=== PATIENT | male | born 1975 | race Caucasian/White ===

== ENCOUNTER 2025-02-09 11:48 | Emergency (ER) | payer OTHER, SELFPAY ==
[2025-02-09] VITALS (35 sets, daily range): BP systolic 111–164; BP diastolic 65–125; PULSE 95–114; RESP 20; TEMP 36.1–36.9; O2SAT 85–105
--- NOTE | 2025-02-09 12:12 | W.ED.GENAD ---
Discharge Plan Discharge Details Chief Complaint: PsychEval Primary Care Provider: Eriberto Peter ED Provider: Aislinn Pineda Home Meds and New Rx's Prescriptions: No Action gabapentin 600 MG tablet 600 mg PO TID clonazepam 1 MG tablet 1 mg PO TID hydroxyzine pamoate 50 MG capsule 50 mg PO TID omeprazole 20 MG capsule,delayed release(DR/EC) 20 mg PO DAILY paroxetine HCl 40 MG tablet 20 mg PO TID buspirone 15 MG tablet 20 mg PO TID HPI <Karmen Henry - Last Filed: 02/09/25 17:56> General Date/Time Provider Initiated Documentation: 02/09/25 11:59. HPI Narrative: Carl is a 49 year old male who presents to the emergency department today for evaluation of SI and vomiting/ETOH use. Reports he has had vomiting at night for the past couple nights, last night says he began drinking alcohol, admits to drinking only 1 tall boy cans of beer. Today has vomited multiple times, thinks there may be blood in his vomit. ROS limited due to intoxication, however patient denies recent injuries, fever/chills, chest pain, shortness of breath, abdominal pain, change in bowel or bladder function. He does endorse SI, denies having a plan, states he would just like to go to sleep and not wake up. Past medical history is significant for alcohol use disorder, recently hospitalized at [facility] and then sober home, has been sober for 3 weeks prior to recent alcohol consult. Denies history of complicated alcohol withdrawal Physical exam reassuring. Patient appears intoxicated and often has difficulty answering questions, often with tangential answers. Moist mucous membranes. No blood noted in oropharynx. Easy work of breathing, lung sounds clear bilaterally. Normal heart sounds, mild tachycardia noted. Abdomen is soft, nondistended, nontender to palpation with normoactive bowel sounds. Normal gait. Moving all extremities equally. D/dx includes but is not limited to: Intoxication, upper GI bleed, gastritis, dehydration, electrolyte imbalance. Concern for SI, patient does require crisis eval after medical clearance. No red flags on abdominal exam concerning for acute abdominal process requiring emergent CT at this time I independently interpreted the following tests: EtOH 377.1. CBC reassuring, mild anemia noted (11.4/36.7, no previous available for comparison). Mild hypokalemia, potassium 3.3. Mild hypocalcemia, 7.6 (patient does have chronic hypocalcemia, calcium 8.2 on 11/01/2024 and 8.6 on 12/31/2024). TSH 0.3, normal T4. EtOH very elevated at 377.1. ASA and APAP negative. UA unremarkable; UDS negative. While in the emergency department, Carl received a liter of fluids, famotidine, Mylanta, and Zofran x 2. Patient did vomit while in the emergency department, no blood or coffee-ground emesis. Handoff report given to evening ELICIA ENRIQUE Duval. Patient to be evaluated by [facility] once medically cleared/clinicically sober. Related Data Home Medications ?Medication ?Instructions ?Recorded ?Confirmed buspirone 15 mg tablet 20 mg PO TID 01/14/15 01/14/15 clonazepam 1 mg tablet 1 mg PO TID 01/14/15 01/14/15 gabapentin 600 mg tablet 600 mg PO TID 01/14/15 01/14/15 hydroxyzine pamoate 50 mg capsule 50 mg PO TID 01/14/15 01/14/15 omeprazole 20 mg capsule,delayed 20 mg PO DAILY 01/14/15 01/14/15 release paroxetine HCl 40 mg tablet 20 mg PO TID 01/14/15 01/14/15 Allergies Allergy/AdvReac Type Severity Reaction Status Date / Time quetiapine fumarate (From AdvReac Intermediate Nausea Unverified 02/09/25 14:37 Seroquel) General Stated Complaint: PsychEval LINDA: 2 Exam <Karmen Henry - Last Filed: 02/09/25 17:56> Const General: cooperative, healthy appearing and no acute distress Nutritional Appearance: overweight Orientation: alert and oriented x3 HENMT Head: normal to inspection, no palpable skull fracture, normocephalic, atraumatic, no Richardson's sign and No periorbital ecchymosis Ears: hearing grossly normal bilaterally General nose exam: external nose normal Face and sinus: normal facial exam and face symmetric Mouth: oral mucosae normal, tongue normal, oropharynx normal and moist mucous membranes Resp Effort & Inspection: normal respiratory effort and able to speak in complete sentences Auscultation: clear to auscultation bilaterally Cardio Rate: tachycardic Rhythm: regular rhythm GI Inspection: normal to inspection and non-distended Palpation: soft, not firm, no guarding, not rigid and nontender Skin General skin exam: no rashes or lesions noted Neuro General: patient alert, patient oriented x3, gait normal, tone normal, moves all extremities and no focal motor deficits Motor: muscle tone normal throughout and strength 5/5 throughout Psych Affect: sad, dysphoric affect and blunted Thought Content: suicidality Course <Karmen M Alejandra Henry - Last Filed: 02/09/25 17:56> Vital Signs Vital signs: Vital Signs Temperature 36.9 C 02/09/25 11:50 Pulse 111 H 02/09/25 11:50 Respiratory Rate 20 02/09/25 11:50 Blood Pressure 146/104 H 02/09/25 11:50 Pulse Oximetry 94 02/09/25 11:50 Temperature 36.9 C 02/09/25 11:50 Temperature Source Oral 02/09/25 11:50 Pulse 111 H 02/09/25 11:50 Respiratory Rate 20 02/09/25 11:50 Blood Pressure 146/104 H 02/09/25 11:50 Pulse Oximetry 94 02/09/25 11:50 Oxygen Delivery Method Room Air 02/09/25 11:50 Oxygen Flow Rate 0 02/09/25 11:50 Pain Level 0 02/09/25 11:50 Medical Decision Making <ENRIQUE Duval - Last Filed: 02/09/25 22:12> Case is answered from Karmen Roberts pending clinical sobriety and NK chest assessment. Patient has been sober for 3 weeks and has only been drinking alcohol for the past 48 hours per patient. He lives in sober living house. States he was having a panic attack and very depressed and so he drink. He states he has never had delirium tremens fevers or significant alcohol withdrawal. He denies current suicidality. He is requesting to go home and is clinically sober however I am concerned as patient was so depressed that he started drinking in a sober living house and so I had [facility] human services performing assessment and they feel patient should be voluntary status for placement at this time patient is agreeable to voluntary status and placement he denies current suicidality. He is willing or vomiting and able to tolerate p.o.. His calcium was slightly low so he will need calcium supplement daily I have ordered a CIWA however his CIWA has not progressed over a level 2 and at this point his alcohol level should be below 100 which is reassuring. Patient pending placement at this time we will continue to monitor. Approximately 2100 patient had some nausea and was given IM Ativan with Compazine. He is feeling improvement at time of reassessment. ciwa 2 PFSH <Karmen Christie Henry - Last Filed: 02/09/25 17:56> Social History Smoking/Tobacco Use Status: Former Tobacco Use Smoking risk assessment performed?: Yes Alcohol Intake: current Alcohol Intake frequency: a few times a week Drug use: Never Substance use type: does not use Housing: other Do you feel safe at home: No Do you feel safe in your relationship?: No PAWSS <Karmen Christie Henry - Last Filed: 02/09/25 17:56> Have you Been Recently Intoxicated or Drunk Within the Last 30 days?: Yes Have you Ever Experienced Previous Episodes of Alcohol Withdrawal?: Yes Have you ever Experienced Withdrawal Seizures?: No Have you ever Experienced Delirium Tremens(DT)s?: No Have you ever undergone Alcohol Rehabilitation Treatment (i.e, inpt ot outpatient treatment programs)?: Yes Have you ever Experienced Blackouts?: Yes Have you ever Combined Alcohol with other Downers within the last 90 days?: No Have you ever Combined Alcohol with any other Substance of Abuse during the last 90 days?: No Positive Blood Alcohol level on Presentation? [PCS.BAL]: Yes Evidence of Increased Autonomic Activity (i.e. HR>120, tremor, sweating, agitation, nausea)?: No Result: 5 <ENRIQUE Duval - Last Filed: 02/09/25 22:12> Result: 5
[2025-02-09] MEDS: Normal Saline 1,000 ML 1000 ML IV (12:50)
[2025-02-09] MEDS: Ondansetron 4 MG/2 ML VIAL IVP ×2 (13:10→14:41)
[2025-02-09 13:17] LABS: Abs Immature Grans 0.02 10^3/uL (0.0-0.06); HCT 36.7 % (40.0-50.0); HGB 11.4 g/dL (13.5-17.5); Immature Grans % 0.3 %; MCH 22.2 pg (27.0-33.0); MCHC 31.1 % (32.0-36.0); MCV 72 fL (80-95); MPV 9.3 fL (8.0-11.0); Platelet Count 277 10^3/uL (130-400); RBC 5.13 10^6/uL (4.36-5.78); RDW 15.5 % (11.8-14.1); RDW-SD 39.3 fL; WBC 6.03 10^3/uL (4.4-10.8)
[2025-02-09 13:35] LABS: Microcytosis 2+
[2025-02-09 13:43] LABS: ALT 43 U/L (16-63); AST 33 U/L (15-37); Albumin 3.8 g/dL (3.4-5.0); Alkaline Phosphatase 96 U/L (46-116); Anion Gap 11.9 mmol/L (3-11); BUN 13 mg/dL (7-18); Bilirubin, Total 0.3 mg/dL (0.2-1.0); CO2 27.1 mmol/L (21.0-32.0); Calcium 7.6 mg/dL (8.5-10.1); Chloride 105 mmol/L (98-107); Estimated GFR 83.32 (mL/min/1.73m2); Glucose 120 mg/dL (74-106); Lipase 23 U/L (<78); Potassium 3.3 mmol/L (3.5-5.1); Sodium 144 mmol/L (136-145); TSH (W/Ref FT4) 0.30 uIU/mL (0.36-3.74); Total Protein 7.5 g/dL (6.4-8.2)
--- NOTE | 2025-02-09 14:00 | RT.EKG_ITS ---
APPROVED REPORT Exam: Resting ECG Reason for Exam: hypocalcemia Patient Location: E HR:104 bpm ECG Measurements Heart Rate 104 AXIS NC 148 P 43 QRSd 95 QRS 22 QT 349 T 28 QTc 460 Conclusion Sinus tachycardia...rate> 99 No Occlusion TX
[2025-02-09 14:03] LABS: Salicylate < 2.8 mg/dL (<2.8)
[2025-02-09 14:04] LABS: Acetaminophen < 2 ug/mL (10-30)
[2025-02-09 14:19] LABS: Glucose Negative (Negative)
[2025-02-09 14:35] LABS: Cannabinoids THC Negative (Negative); METHADONE URINE SCREEN Negative (Negative)
[2025-02-09] MEDS: Calcium 600mg/Vit D 200U TAB 1 TAB PO (14:42)
[2025-02-09] MEDS: Famotidine 20 MG/2 ML VIAL IVP (15:12)
[2025-02-09] MEDS: Mylanta Suspension 30 ML CUP PO (15:12)
[2025-02-09 15:48] LABS: Lab Add On Test DONE
[2025-02-09 15:59] LABS: Magnesium 2.0 mg/dL (1.8-2.4)
[2025-02-09] MEDS: hydrOXYzine HCL 25 MG TAB PO (20:46)
[2025-02-09] MEDS: LORazepam 20 MG/10 ML VIAL IM (21:41)
[2025-02-09] MEDS: Prochlorperazine 10 MG/2 ML VIAL 5 MG IM (21:41)
--- NOTE | 2025-02-09 21:42 | PDOC.MHCN ---
Date of service: 02/09/25 Time of Service: 18:42 PHQ-9 Over the last 2 weeks, how often have you been bothered by any of the following problems? 1. Little interest or pleasure in doing things: not at all 2. Feeling down, depressed, or hopeless: nearly every day 3. Trouble falling or staying asleep, or sleeping too much: nearly every day 4. Feeling tired or having little energy: not at all 5. Poor appetite or overeating: nearly every day 6. Feeling bad about yourself - or that you are a failure or have let yourself and your family down: nearly every day 7. Trouble concentrating on things, such as reading the newspaper or watching television: not at all 8. Moving or speaking so slowly that other people could have noticed? - Or the opposite - being so fidgety or restless that you have been moving around a lot more than usual: nearly every day 9. Thoughts that you would be better off or of hurting yourself in some way: nearly every day Total score: 18 If you checked off any problems, how difficult have these problems made it for you to do your work, take care of things at home, or get along with other people?: not difficult at all Source: Developed by Drs. Charlie Pollard, Cristiane Peter, Heriberto Knight and colleagues, with an educational gretchen from [employer]. Suicide Severity Rate CSSRS Have you wished you were or wished you could go to sleep and not wake up?: Yes Have you actually had any thoughts of killing yourself?: No CSSRS3 Have you ever done anything, started to do anything or prepared to do anything to end your life?: Yes CSSRS4 Was this within the past three months?: No Screening Score Total Score: 4 Screening: Positive Mental Health Emergency Note Release [facility] release signed:: Yes Reason for Visit The client was seen by mobile [facility] earlier in the day at his residence. The mobile team called for EMS as the client is unable to engage in assessment due to ETOH and other unknown substances, bleeding and unexplained vomiting, pain and claims that he's dying. Clinician determined the situation was a medical emergency and asked for EMS transport to the hospital for evaluation. The client is not known to [facility] prior to this involvement and not known to this clinician. The client self reports to have been hospitalized twice in the past for his mental health. Once [facility] and the last time at [facility] roughly five months ago. In the last 2 weeks has the pt presented for ES prior to today?: No Client Information Client is: Substance use and New Well Housed: No,status: Not homeless, Non Suicidal Self Injury Current: No History: No Safety Risk/Harm to Self or Others Current Ideation to Harm Self or Others: Yes to self. (The client reports a plan of drinking to with intent rated a 10 out of 10.) Intent: yes, has intent. Plan: yes,has a plan. History of suicide attempt: yes,history of suicide attempt reported. Details of previous suicide attempt: The client reports taking sleeping pills, consuming alcohol and going to the river with the intent to black out and fall in. Risk: Does risk to harm exist?: yes. Access to means: Yes. Types of Means: Other weapons and Medication. Details: The client reports having access to SHARPS, medications and alcohol. . Counseling provided: No Risk: High Risk Duty to warn indicated: No Asssessment/Mental Status Appearance: Disheveled Attitude: Cooperative and Friendly Behavior: Poor impulse control Speech: Normal Affect: Cogruent with mood Mood: Other (The client reports his mood as lost) Thought process: Goal directed Hallucinations: yes, (The client reports visual hallucinations of ) Visual Delusions: No Attention: Wandering and Poor concentration Perception: Not impaired Orientation: Fully orientated Memory: Intact Insight: Poor Judgement: Poor Neurovegetative Symptoms Sleep: Decrease Appetitie: Decrease Interests: Decrease Energy: Decrease Libido: Not applicable Substance Use: ETOH dependence Do you use nicotine?: No Have you used substances in the last 7 days?: yes, The client reports use of alcohol Additional Issues: Assaultive/Threatening Behavior: No Medical Concerns: Yes Client engaged in active self harm w/weapon: No Threatening to run away: No Child reported abuse/neglect: No Voluntarily presenting for services: Yes Domestic violence is a concern: No Extreme Psychosis or extreme behavior is present: No Impression The client is a 49 year old biological male who resides at a sober living house in [place], [place]. The client presents in a disheveled appearance wearing blue paper scrubs in the ED of [facility]. Affect is appears to be congruent with mood. Speech is in normal range. Client is friendly and cooperative with this clinician; they report their mood as lost. Thought process appears to be goal directed. There are no delusions observed. The client reports having visual hallucinations of . The client denied auditory hallucinations. Cognitive assessment reveals orientation to person, place and time. The client reported that he has just given up and has been struggling for six months now. The client states he is a recovering alcoholic and has been consuming alcohol since he was in the second grade. The client reports going to two different rehabs and now is in sober living as they recognize their substance abuse as a problem. The client states he hates drinking but it seems to be a cure for him. The client states when he starts drinking it is a temporary relief but then soon makes him feel sick. The client is heard saying it does not make sense why I keep doing this to myself. The client reports feeling burnt out and lonely. The client denies HI and NSSI to this clinician with no intent, plan or past history. The client denies suicidal to then change his answer and states if I go home tonight I will drink myself to . The client reports his intent to be a 10 out of 10. The client states he has made an attempt in the past on his life. The client reports taking a hand full of sleeping pills and going down by the river to drink vodka with the plan of blacking out and falling into the river. The client states he did black out but did not fall into the river. The client scored a 18/27 on the PHQ-9 and a 2/6 on the CSSRS. The client was agreeable to stay at [facility] until placement is secured at a psychiatric hospital. The client was seen tearful at the end of the assessment stating I do not want to . Plan/Disposition Recommended Disposition: Hospitalization facilities contacted. Plan: The client will remain at [facility] ED until placement is secured. The client will be assessed daily by emergency services until placed. Reports/communication Outcome discussed with: ED/Personnel
[2025-02-10] MEDS: Prochlorperazine 5 MG TAB PO (00:40)
[2025-02-10 00:41] VITALS: BP 152/115; PULSE 86; RESP 20; TEMP 36.8; O2SAT 93
[2025-02-10] MEDS: OLANZapine 10 MG TAB PO (00:41)
[2025-02-10] MEDS: lamoTRIgine 100 MG TAB PO ×3 (00:42→19:52)
[2025-02-10] MEDS: Sertraline 100 MG TAB PO ×2 (00:42→20:03)
[2025-02-10] MEDS: MYLANTA 30 ML, LIDOCAINE 2% VISCOUS UD 15 ML PO (02:27)
[2025-02-10] MEDS: clonazePAM 1 MG TAB PO ×3 (05:30→19:52)
--- NOTE | 2025-02-10 05:48 | W.EDPROG ---
Date of service: 02/10/25 Time of Service: 05:48 Medical Decision Making Continued occasional vomiting (nonbloody nonbilious) and burning esophageal pain overnight; given GI cocktail and compazine for symptoms with good effect. Discharge Plan Discharge Details Chief Complaint: PsychEval Primary Care Provider: Eriberto Peter ED Provider: Roseanna Vargas Home Meds and New Rx's Prescriptions: No Action gabapentin 600 MG tablet 600 mg PO TID Patient Comments: states he is not taking currently clonazepam 1 MG tablet 1 mg PO TID Patient Comments: states he is not taking currently hydroxyzine pamoate 50 MG capsule 50 mg PO TID omeprazole 20 MG capsule,delayed release(DR/EC) 20 mg PO DAILY Patient Comments: states he is not taking currently paroxetine HCl 40 MG tablet 20 mg PO TID Patient Comments: states he is not taking currently buspirone 15 MG tablet 20 mg PO TID Patient Comments: states he is not taking currently lamotrigine [Lamictal] 100 mg tablet 100 mg PO BID sertraline 100 mg tablet 100 mg PO QHS olanzapine 10 mg tablet 10 mg PO QHS
[2025-02-10] MEDS: Prochlorperazine 10 MG TAB PO (06:01)
[2025-02-10] MEDS: Mylanta Suspension 30 ML CUP PO ×2 (06:02→10:12)
--- NOTE | 2025-02-10 06:05 | NUR.NOTE ---
at 0540 PT vomited shortly after taking medication. ED MD notifiedNursing Note:
[2025-02-10 06:59] VITALS: BP 156/71; PULSE 109; TEMP 35.8; O2SAT 96
--- NOTE | 2025-02-10 07:00 | ED.PSYCHBOAR ---
Date of service: 02/10/25 Time of Service: 07:00 Psychiatric Border Handoff Update Brief Story: This is a patient with a history of alcohol use disorder with recent relapse and binge drinking, last drink last night, patient reporting SI to mental health prehospital, has had nausea and vomiting with streaks of blood, has a history of ulceration identified on endoscopy and has not had his Prilosec. He did not have any intent or plan, and was medically cleared prior to taking over my care. He is awaiting inpatient placement. Status: voluntary Able to leave: yes Behavioral Concerns: None Potential Disposition: Inpatient psychiatric versus substance use treatment Barriers to Disposition: Awaiting acceptance/placement Medical Concerns: Nausea and vomiting requiring multiple medications including Zofran, Compazine Mediation Reconciliation performed: Yes Code Status ordered: Yes Diet ordered: Yes Discharge Plan Discharge Details Chief Complaint: PsychEval Primary Care Provider: Eriberto Peter ED Provider: Jennifer Stauffer Home Meds and New Rx's Prescriptions: No Action gabapentin 600 MG tablet 600 mg PO TID Patient Comments: states he is not taking currently clonazepam 1 MG tablet 1 mg PO TID Patient Comments: states he is not taking currently hydroxyzine pamoate 50 MG capsule 50 mg PO TID omeprazole 20 MG capsule,delayed release(DR/EC) 20 mg PO DAILY Patient Comments: states he is not taking currently paroxetine HCl 40 MG tablet 20 mg PO TID Patient Comments: states he is not taking currently buspirone 15 MG tablet 20 mg PO TID Patient Comments: states he is not taking currently lamotrigine [Lamictal] 100 mg tablet 100 mg PO BID sertraline 100 mg tablet 100 mg PO QHS olanzapine 10 mg tablet 10 mg PO QHS
--- NOTE | 2025-02-10 07:30 | RT.EKG_ITS ---
APPROVED REPORT Exam: Resting ECG Reason for Exam: qtc eval Patient Location: E HR:102 bpm ECG Measurements Heart Rate 102 AXIS OH 147 P 33 QRSd 91 QRS 15 QT 355 T 11 QTc 463 Conclusion Sinus tachycardia, rate 102 No interval abnormalities, QTc 463, no change from prior No STEMI No significant changes from priors
[2025-02-10] MEDS: Lactated Ringers 1,000 ML 1000 ML IV (08:15)
--- NOTE | 2025-02-10 08:20 | W.EDPROG ---
Date of service: 02/10/25 Time of Service: 08:20 Medical Decision Making In brief, this is a 49-year-old male patient boarding voluntarily for alcohol use disorder and passive suicidal ideations. Please see my psych handoff note for complete details of his psychiatric portion of his visit. I was summoned to [facility] to evaluate this patient given his ongoing nausea and vomiting and new tachycardia with this morning's vitals check. The patient has not been able to tolerate an adequate amount of oral intake and I am suspicious for alcoholic gastritis given his history and otherwise reassuring workup performed by the prior provider. The decision was made to move the patient to the main ED to provide him with IV rehydration and fluids, complete a new p.o. challenge, as well as for monitoring of his sleep apnea. The patient reports that he does not have a formal diagnosis of sleep apnea and does not use a CPAP at home. Respiratory therapy was contacted to assist us with CPAP while in the emergency department. Given the active vomiting, I think it is reasonable to provide this patient with a liter of lactated Ringer's, and will obtain a repeat BMP and magnesium. As he has received numerous QTc prolonging medications I will repeat his EKG to evaluate for safety of ongoing antinausea medications. I will also provide him with some intravenous pantoprazole given his known history of peptic ulcer disease. - I reviewed the patient's repeat laboratory studies, and note no electrolyte derangements, kidney injury, or other severe abnormalities that require emergent correction. The patient tolerated oral intake after his fluids, but was complaining of a sore throat from vomiting and was provided with his Mylanta as well as a dose of Zofran. I am awaiting respiratory therapy evaluation, but anticipate that if this patient is able to tolerate oral intake that it would be appropriate for us to transition him back to the zone B environment. However, he will require ongoing management of his sleep apnea and may require oxygen during periods of sleep. - I independently interpreted the laboratory studies, which is without evidence of electrolyte abnormality, kidney dysfunction. On reassessment the patient has had no further vomiting, was able to tolerate oral intake and was transitioned back to oral antinausea medications. He had an excellent few hours of sleep on the CPAP with no further desaturation events. He now meets criteria for medical clearance once more, was transported back to the zone B environment with a plan to return to the main ED during sleep for CPAP. Social workers met with the patient, and it seems that his depression and suicidality is largely conditional on his medical illness. I suspect that after this management of his nausea and vomiting as well as a potential good night sleep on the CPAP may feel improved on his reevaluation tomorrow be appropriate for outpatient safety plan. He also understands that his primary care provider will need to schedule a sleep study for him given the concern for sleep apnea on our clinical examination. The patient was signed out to the oncoming provider prior to final disposition, remained hemodynamically improved while under my care. Jennifer Stauffer MD Procedure EJ/Peripheral IV/Phlebotomy Date of Procedure: 02/10/25 Time of Procedure: 08:15 Indication: Nursing/tech could not get IV Skin Cleansed in Sterile Fashion: Yes Laterality: Right Insertion Site: Basilic Size & Type: 18 ga. Number ofAttempts(See previous attempts in note section): 1 Dressing: Tegaderm Applied Ultrasound: Used/Image Saved Estimated Blood Loss: minimal Reason for Blood Draw by Provider: RN/lab unable Obtained Bloods via: peripheral vein stick Estimated cc's Blood Obtained: 5 Procedure Tolerated: No Complications and Patient tolerated well Procedure Outcome: Successful Procedure Description/Note: Ultrasound-guided IV procedure Candidate vein examined with linear array probe - confirmed collapsibility, lack of pulsatility, and proper anatomic location. Using aseptic technique, IV catheter inserted with flash of blood noted, flow of venous blood confirmed. Flushes easily and without pain. No hematoma or complications noted. IV secured. Patient tolerated well. Jennifer Stauffer MD Discharge Plan Discharge Details Chief Complaint: PsychEval Primary Care Provider: Eriberto Peter ED Provider: Jennifer Stauffer Home Meds and New Rx's Prescriptions: No Action gabapentin 600 MG tablet 600 mg PO TID Patient Comments: states he is not taking currently clonazepam 1 MG tablet 1 mg PO TID Patient Comments: states he is not taking currently hydroxyzine pamoate 50 MG capsule 50 mg PO TID omeprazole 20 MG capsule,delayed release(DR/EC) 20 mg PO DAILY Patient Comments: states he is not taking currently paroxetine HCl 40 MG tablet 20 mg PO TID Patient Comments: states he is not taking currently buspirone 15 MG tablet 20 mg PO TID Patient Comments: states he is not taking currently lamotrigine [Lamictal] 100 mg tablet 100 mg PO BID sertraline 100 mg tablet 100 mg PO QHS olanzapine 10 mg tablet 10 mg PO QHS
[2025-02-10 08:28] LABS: Anion Gap 6.0 mmol/L (3-11); BUN 12 mg/dL (7-18); CO2 33.0 mmol/L (21.0-32.0); Calcium 8.1 mg/dL (8.5-10.1); Chloride 103 mmol/L (98-107); Estimated GFR 106.01 (mL/min/1.73m2); Glucose 105 mg/dL (74-106); Magnesium 1.8 mg/dL (1.8-2.4); Potassium 3.9 mmol/L (3.5-5.1); Sodium 142 mmol/L (136-145)
[2025-02-10] MEDS: hydrOXYzine HCL 25 MG TAB PO ×3 (08:43→19:52)
[2025-02-10] MEDS: Pantoprazole 40 MG VIAL IVP (08:43)
[2025-02-10] MEDS: Calcium 600mg/Vit D 200U TAB 1 TAB PO (08:44)
[2025-02-10] MEDS: Ondansetron 4 MG/2 ML VIAL IVP (10:12)
[2025-02-10 10:41] VITALS: PULSE 102; RESP 19; O2SAT 95
--- NOTE | 2025-02-10 10:43 | PDOC.CMSAFE ---
Date of service: 02/10/25 Time of Service: 10:43 Care Management Safety Plan Status Status: Voluntary Reason for Wait Reason for Wait: Inpatient Admission Safety Plan Safety Plan: VOLUNTARY FOR INPATIENT PSYCHIATRIC STABILIZATION.? Patient is appropriate in all interactions since arriving at [facility]; Pt has demonstrated appropriate coping and communication skills, has articulated his or her needs and concerns and is fully engaged during staff interactions. Safety plan has been established with patient, and care team, to adhere to patient goals, identify restrictions based on behavioral status, address nutrition, and determine allowed personal belongings, tools for hygiene and personal care. Determine level of activity including ambulation, level of supervision, visitors, and determine privileges based on behaviors and level of engagement by pt. SAFETY PLAN: 1. Will remain on suicide precautions, in paper clothes 2. Will remain in room under direct supervision of one-on-one staff at all times provided by [employer]; ANUPAM, SIGNALS INTELLIGENCE ANALYSIS MANAGER diorama model maker. 3. May have paper cups, plates, finger foods as well as a cardboard spoon with which to eat meals. 4. Follow [facility] Management of the Admitted Behavioral Health Patient policy. 5. Comfort bath system, shower permitted with escort at RN discretion. 6. Personal belongings-soft items permitted at RN discretion. 7. Visitors-none at this time. 8. Activities: soft cart items approved per RN discretion. 9.? Bathroom privileges with escort in the ED. 10. Phone: limited to cordless phone at RN discretion. Due to VOLUNTARY status, if patient wishes to leave [facility], staff will contact [facility] Crisis Screener ([phone]) and On-Call Machine Tech ([phone]) as soon as possible. In the event of elopement, notify [facility] Police ([phone]).
--- NOTE | 2025-02-10 11:55 | CMPROGNOTE_ITS ---
Date of service: 02/10/25 Time of Service: 11:55 Care Management Progress Note Progress Note Text Progress Note Text: Carl was brought to the ER yesterday with c/o vomiting and ETOH abuse. He still not medically cleared for Zone B, but he was evaluated by [facility] via zoom this morning. CM huddled with MARKET SALES MANAGER. Voluntary Safety plan in place MH Services (Omit if N/A) Current MH Services: None Status Status: Voluntary Reason for Wait: Inpatient Admission and Medical Clearance Social Determinants of Health Screening Will the Patient Participate in the Screening?: Unable to obtain Do you worry about having a steady place to live?: choose not to answer
[2025-02-10 12:15] VITALS: PULSE 94; RESP 17; O2SAT 98
--- NOTE | 2025-02-10 13:21 | MHPN_ITS ---
Date of service: 02/10/25 Time of Service: 11:19 Mental Health Emergency Note Release [facility] release signed:: No Reason for Visit Client presenting for reassessment after admission due to ETOH and reports of passive SI In the last 2 weeks has the pt presented for ES prior to today?: No Client Information Client is: Substance use and New Well Housed: No,status: Not homeless, Non Suicidal Self Injury Current: No History: No Neurovegetative Symptoms Sleep: Decrease Appetitie: Decrease Interests: Decrease Energy: Decrease Libido: Not applicable Substance Use: ETOH dependence Do you use nicotine?: No Have you used substances in the last 7 days?: yes, The client reports use of alcohol Additional Issues: Assaultive/Threatening Behavior: No Medical Concerns: Yes Client engaged in active self harm w/weapon: No Threatening to run away: No Child reported abuse/neglect: No Voluntarily presenting for services: Yes Domestic violence is a concern: No Extreme Psychosis or extreme behavior is present: No Impression The client is a 49-year-old male presenting at [facility] ED via [facility] for reassessment. He is oriented across all spheres and is dressed in paper scrubs. The client denies SI and HI but reports increased stress due to medical diagnostics and feeling unwell. He denies auditory and visual hallucinations but acknowledges staying in a sober living home and actively participating in treatment for alcoh ol use disorder. He reported a recent relapse, which led to his arrival at the ED. Throughout the reassessment, the client was cooperative but exhibited periods of drowsiness. He reported last night expressing passive SI due to feeling overwhelmed, stating, I can't do anything anymore. He has a history of a suicide attempt in 2011, during which he ingested sleeping medication and planned to drown himself in a river. However, when comparing his feelings from that time to the present, he expressed a desire to live, citing protective factors such as a fear of dying and a wish to get my life back. It appears that his acute medical symptoms are significantly contributing to his passive SI and intoxication. The client is future-oriented, discussing his enjoyment of being outdoors and his desire to rekindle his love of shellfishing. He is originally from [facility] and is currently in the area due to the sober living home. He reported daily vomiting for the past few weeks, along with anemia and physical exhaustion, which have taken a toll on his mental health. The client no longer wishes to pursue voluntary placement; instead, he seeks medical support to improve his physical condition, believing this will positively impact his mental health and recovery. This instructional writer consulted with Emily Pina, who agreed to the client's request for a one-night observation stay. [facility] will reassess him in the morning to explore disposition and confirm his mental status. Emily Pina noted that the client has been experiencing sleep difficulties, potentially related to undiagnosed sleep apnea, and will require a CPAP machine. It was also observed that the client had drifted to sleep during the assessment, which was the first instance of sleep since his arrival. Discussions included m edical referrals to a primary care provider for a sleep study, which will also be considered during tomorrow's reassessment, alongside outpatient support options for his recovery. Plan/Disposition Recommended Disposition: Other (Ct will remain at [facility] throughout the night for observation, reassessment on mental status tomorrow 02/11/2025). Plan: ProviderJennifer Reports/communication Outcome discussed with: ED/Personnel (Dr. Pina)
[2025-02-10 19:45] VITALS: BP 148/97; PULSE 99; RESP 16; TEMP 36.3; O2SAT 95
[2025-02-11] VITALS (51 sets, daily range): PULSE 78–98; RESP 17; O2SAT 95–100
--- NOTE | 2025-02-11 03:46 | NUR.NOTE ---
PT woke up and wants to stay awake. PT is going to be moved back to zone B. Nursing Note:
[2025-02-11] MEDS: hydrOXYzine HCL 25 MG TAB PO (07:05)
[2025-02-11] MEDS: lamoTRIgine 100 MG TAB PO (07:06)
[2025-02-11] MEDS: clonazePAM 1 MG TAB PO (07:06)
--- NOTE | 2025-02-11 07:08 | ED.PSYCHBOAR ---
Date of service: 02/11/25 Time of Service: 07:39 Psychiatric Border Handoff Update Brief Story: In brief, this is a 49-year-old male patient with a history of alcohol use disorder boarding in our emergency department voluntarily with suicidal ideation in the setting of a recent alcohol binge. Prior to my taking over their care, the patient was medically cleared, and has been resting comfortably. They have met with the high school social studies tutor and we are awaiting final dispo. They have not required any additional medications for restraint or sedation. They have been admitted to ED psych observation. Status: voluntary Able to leave: yes Behavioral Concerns: None Potential Disposition: Inpatient placement versus reassessment and safety plan to home, resides at a sober living house which is safe and able to be followed up with Barriers to Disposition: Awaiting [facility] reassessment Medical Concerns: Likely sleep apnea, requiring CPAP while sleeping. Nausea and vomiting due to alcoholic gastritis controlled with oral medications and Mylanta. Mediation Reconciliation performed: Yes Code Status ordered: Yes Diet ordered: Yes Discharge Plan Disposition Patient Disposition: Home Condition: Stable Discharge Details Clinical Impression: Suicidal ideations, Alcohol use disorder, Alcoholic gastritis, Sleep apnea Primary Care Provider: Eriberto Peter ED Provider: Jennifer Stauffer Home Meds and New Rx's Prescriptions: No Action gabapentin 600 MG tablet 600 mg PO TID Patient Comments: states he is not taking currently clonazepam 1 MG tablet 1 mg PO TID Patient Comments: states he is not taking currently hydroxyzine pamoate 50 MG capsule 50 mg PO TID omeprazole 20 MG capsule,delayed release(DR/EC) 20 mg PO DAILY Patient Comments: states he is not taking currently paroxetine HCl 40 MG tablet 20 mg PO TID Patient Comments: states he is not taking currently buspirone 15 MG tablet 20 mg PO TID Patient Comments: states he is not taking currently lamotrigine [Lamictal] 100 mg tablet 100 mg PO BID sertraline 100 mg tablet 100 mg PO QHS olanzapine 10 mg tablet 10 mg PO QHS Discharge Instructions Instructions: Gastritis (DC) Additional Instructions: You were seen in the emergency department today for evaluation of suicidal ideation in the setting of alcohol use disorder and alcoholic gastritis with nausea and vomiting. In our department you do full physical examination performed and reassuring laboratory studies. You received IV fluids and medications for management of your symptoms of nausea and vomiting. You also met with a member of our crisis team and at this time have completed a safety plan which you will adhere to after discharge. I recommend that you restart taking your Prilosec, as this will reduce the acid formation in your stomach and allow your stomach lining and esophagus to heal. You can use pvoh-kil-mucjyyu medication such as Mylanta which were effective in managing your symptoms here in the emergency department. You need to reach out to your primary care provider to schedule a sleep study, as you had evidence while here in the emergency department of sleep apnea. You benefited greatly from utilization of a CPAP machine and I think should be evaluated to have one prescribed for you in the outpatient environment. You can always return to the emergency department for reevaluation especially if your symptoms change, worsen, or you have recurrence of your suicidal thoughts or feelings. Please follow-up with your primary care provider in the next few days to discuss this visit and any symptoms that change, worsen, or persist. Thank you for allowing us to be part of your care. Discharge Data Discharge Date/Time-TO BE ENTERED AT DEPARTURE: 02/11/25 12:58
[2025-02-11] MEDS: Calcium 600mg/Vit D 200U TAB 1 TAB PO (08:02)
--- NOTE | 2025-02-11 09:02 | CMSP_ITS ---
Date of service: 02/11/25 Time of Service: 09:02 Care Management Safety Plan Status Status: Voluntary Reason for Wait Reason for Wait: Inpatient Admission and Other (may be safety planned home) Safety Plan Safety Plan: VOLUNTARY FOR INPATIENT PSYCHIATRIC STABILIZATION.? Patient is appropriate in all interactions since arriving at [facility]; Pt has demonstrated appropriate coping and communication skills, has articulated his or her needs and concerns and is fully engaged during staff interactions. Safety plan has been established with patient, and care team, to adhere to patient goals, identify restrictions based on behavioral status, address nutrition, and determine allowed personal belongings, tools for hygiene and personal care. Determine level of activity including ambulation, level of supervision, visitors, and determine privileges based on behaviors and level of engagement by pt. VOLUNTARY SAFETY PLAN: 1. Will remain on suicide precautions, in paper clothes 2. Will remain in Zone B under direct supervision of one-on-one staff at all times provided by [employer]; ANUPAM, BUSINESS OWNER/ENGINEER supervisor felling bucking. 3. May have paper cups, plates, finger foods as well as a cardboard spoon with which to eat meals. 4. Follow [facility] Management of the Admitted Behavioral Health Patient policy. 5. Shower available in Zone B without restriction. 6. Personal belongings-soft items permitted at RN discretion. 7. Visitors-none at this time. 8. Activities: soft cart items, hospital tablets (Netflix/Jovani+/music) approved per RN discretion. 9.? Bathroom available in Zone B without restriction. 10. Phone: limited to [facility] cordless phone at RN discretion. Due to VOLUNTARY status, if patient wishes to leave [facility], staff will contact [facility] Crisis Screener ([phone]) and Lithostripper ([phone]) as soon as possible. In the event of elopement, notify [place] [employer] Police ([phone]). Patient is currently voluntarily at [facility] and seeking inpatient admission when a bed becomes available. [facility] Frontline Manager Client will continue seeking placement. Please contact the Lithostripper ([phone]) and [facility] Manager Client ([phone]) for any needed changes in the Safety Plan. Safety plan has been provided to interdepartmental care team.
--- NOTE | 2025-02-11 11:35 | PDOC.CMDIS ---
Date of service: 02/11/25 Time of Service: 11:35 Care Management Discharge Plan Reason for Hospitalization: suicidal ideation Discharge Plan: Carl is being discharged today on a safety plan. He will f/u with his PCP and with his [facility] supports and continue per his plan of care. He will transport via [facility].
--- NOTE | 2025-02-11 14:57 | MHPN_ITS ---
Date of service: 02/11/25 Time of Service: 10:30 Mental Health Emergency Note Release [facility] release signed:: No Reason for Visit Client presenting for reassessment after admission due to ETOH and reports of passive SI In the last 2 weeks has the pt presented for ES prior to today?: No Client Information Client is: Substance use and New Well Housed: No,status: Not homeless, Non Suicidal Self Injury Current: No History: No Asssessment/Mental Status Appearance: Unremarkable Attitude: Cooperative Behavior: Unremarkable Speech: Normal Affect: Normal Thought process: Unremarkable and Goal directed Hallucinations: No evidence Delusions: No evidence Attention: Unremarkable Perception: Not impaired Orientation: Fully orientated Memory: Intact Insight: Fair Judgement: Fair Neurovegetative Symptoms Sleep: Decrease Appetitie: Decrease Interests: Decrease Energy: Decrease Libido: Not applicable Substance Use: ETOH dependence Do you use nicotine?: No Have you used substances in the last 7 days?: yes, The client reports use of alcohol Additional Issues: Assaultive/Threatening Behavior: No Medical Concerns: Yes Client engaged in active self harm w/weapon: No Threatening to run away: No Child reported abuse/neglect: No Voluntarily presenting for services: Yes Domestic violence is a concern: No Extreme Psychosis or extreme behavior is present: No Impression The client is a 49-year-old male presenting for reassessment. He is oriented across all spheres, dressed appropriately, and denies any lethality concerns. He states, I'm feeling a lot better, and I slept well. The client exhibits future-oriented thinking, discussing upcoming appointments with his established DA. He is connected with [facility] for case management and psychiatry. The client will be communicating with his established providers tomorrow to a ddress financial and medical stressors. He expressed several psychosocial stressors that contributed to his distress, which led to hospitalizations and previous feelings of passive SI. He mentioned that medical concerns and feelings of physical unwellness contributed to his distress, stating, I had a mental breakdown. The client presents as goal-directed and discussed various extensive supports available in the community. He wishes to return to his sober living home and reengage in AA meetings, as well as sessions with his polo coach. The client is intermittently within our catchment area while obtaining recovery treatment and plans to return to [place]. A comprehensive safety plan was created, and he was provided with information for Mobile Crisis/[facility] and [facility] should he need additional support or feel that the safety plan is ineffective. The client denied the need for mobile follow-up, stating, I have my people; I have everything I need. This assembly instructions writer consulted with [facility] Provider Dr. Pina, who will page [facility] to inform them of the client's return to the sober living home.. Resources Reosurces reviewed and given:: 988 and Other (Mobile crisis/ [facility]) Plan/Disposition Recommended Disposition: Community resources and Other (ct will be following up with established providers at [facility]). Plan: Safety planned back to the sober living home with follow up from established team Reports/communication Outcome discussed with: ED/Personnel (Dr. Pina)
== END 2025-02-11 12:58 | disposition home or self-care (01) ==
PROVIDERS: Nurse Practitioner Family; Emergency Provider Emergency Medicine; PCP Family Medicine
DX: R45.851 Suicidal ideations (principal); F10.120 Alcohol abuse with intoxication, uncomplicated; K29.20 Alcoholic gastritis without bleeding; R00.0 Tachycardia, unspecified; E87.6 Hypokalemia; E83.51 Hypocalcemia; Y90.8 Blood alcohol level of 240 mg/100 ml or more; Z87.891 Personal history of nicotine dependence
CPT/HCPCS: 00123; 36415; 76942; 80048; 80053; 80307; 83690; 93005; 96127; 96361; 96372; 96374; 96375; 96376; 99285; G0378; 80320; 80329; 81003; 83735; 83970; 84100; 84439; 84443; 85025; 86147; 93010; J0780; J2060; J2405; J2470

== ENCOUNTER 2025-02-12 15:10 | Emergency (ER) | payer MEDICARE, MEDICAID, SELFPAY ==
[2025-02-12] VITALS (55 sets, daily range): BP systolic 128–196; BP diastolic 66–139; PULSE 39–122; RESP 13–27; TEMP 36.8; O2SAT 89–98
--- NOTE | 2025-02-12 15:45 | RT.EKG_ITS ---
APPROVED REPORT Exam: Resting ECG Reason for Exam: baseline/screening Patient Location: E HR:112 bpm ECG Measurements Heart Rate 112 AXIS ME 141 P 83 QRSd 83 QRS 94 QT 338 T 24 QTc 462 Conclusion Sinus tachycardia...rate> 99 Low voltage, precordial leads...precordial leads <1.0mV
--- NOTE | 2025-02-12 15:45 | DI.CT_ITS ---
Exam(s) CT CHEST/ABD/PEL W EXAM: CT CHEST/ABD/PEL W CLINICAL HISTORY: hematemesis, epigastric pain. TECHNIQUE: Imaging Protocol: Axial computed tomography images with coronal and sagittal reformatted images were created and reviewed CONTRAST MATERIAL: Intravenous: Omnipaque 350 Contrast volume:75 mL Oral: None COMPARISON: No exams were available for comparison FINDINGS: CHEST: LUNGS: There is a small 3 millimeter nodule in the right upper lobe. No other lung nodules, infiltrates, nor pleural effusions. MEDIASTINUM: There is a large hiatal hernia which measures 11 cm wide by 7 cm AP by 6 cm craniocaudal. There is no singh are nor mediastinal adenopathy. Partially visualizedthyroid gland appears unremarkable. CARDIAC: Heart size is normal. There is no pericardial effusion.Caliber of the thoracic aorta is within normal limits. OSSEOUS: No significant osseous lesions.There is a healed fracture of the lateral aspect of the left 4th rib no acute rib fractures evident. No sternal fracture. No vertebral fractures nor listhesis nor facet malalignment. ABDOMEN: There is no ascites. LIVER: There are no focal hepatic lesions nor dilatation of intrahepatic ducts. Liver is mildly hypodense implying an element of steatosis. GALLBLADDER/BILIARY: The gallbladder surgically absent. CBD is not dilated. PANCREAS: No evidence of pancreatic mass nor dilatation of the pancreatic duct. SPLEEN: Spleen is not enlarged. There are no intrasplenic lesions. Splenic and portal veins are patent. ADRENALS: There are no significant adrenal masses. KIDNEYS: No calculi nor hydronephrosis. No solid renal masses. No cysts evident. ABDOMINAL AORTA: Abdominal aorta is not enlarged. LYMPH NODES: There is no retroperitoneal nor paraaortic adenopathy. ABDOMINAL WALL: No evidence of significant anterior abdominal wall nor inguinal hernia. GI: There is no evidence of bowel obstruction. PELVIS: LYMPH NODES: There is no intrapelvic nor inguinal adenopathy. GI: No evidence of appendicitis.No evidence of sigmoid diverticulitis. URINARY BLADDER: Collapsed and therefore difficult to evaluate. REPRODUCTIVE: Prostate size normal. Seminal vesicles unremarkable. OSSEOUS: No significant osseous lesions. IMPRESSION: 1. There is a large hiatal hernia measuring 11 x 7 x 6 cm. No esophageal varices evident. 2. There is a healed fracture of the left 4th rib. 3. No significant acute findings in the abdomen and pelvis. Report called by myself to ER provider 02/12/2025 at 6:10 p.m. RADIATION DOSE DELIVERED: 633.05mGy.cm Total DLP DATA REPOSITORY: All CT scans at this facility are submitted to the National Radiology Data Registry (NRDR) Dose Index Registry (DIR) with the [employer] (ACR). RADIATION OPTIMIZATION: All CT scans at this facility use at least one of these dose optimization techniques: automated exposure control; mA and/or kV adjustment per patient size (includes targeted exams where dose is matched to clinical indication); or iterative reconstruction.
--- NOTE | 2025-02-12 15:54 | W.ED.GENAD ---
Discharge Plan Disposition Condition: Stable Discharge Details Chief Complaint: PsychEval Clinical Impression: Alcohol use disorder, Suicidal ideations Primary Care Provider: Eriberto Peter ED Provider: Soy Martinez Home Meds and New Rx's Prescriptions: No Action gabapentin 600 MG tablet 600 mg PO TID Patient Comments: states he is not taking currently clonazepam 1 MG tablet 1 mg PO TID Patient Comments: states he is not taking currently hydroxyzine pamoate 50 MG capsule 50 mg PO TID omeprazole 20 MG capsule,delayed release(DR/EC) 20 mg PO DAILY Patient Comments: states he is not taking currently paroxetine HCl 40 MG tablet 20 mg PO TID Patient Comments: states he is not taking currently buspirone 15 MG tablet 20 mg PO TID Patient Comments: states he is not taking currently lamotrigine [Lamictal] 100 mg tablet 100 mg PO BID sertraline 100 mg tablet 100 mg PO QHS olanzapine 10 mg tablet 10 mg PO QHS HPI General Date/Time Provider Initiated Documentation: 02/12/25 15:12. HPI Narrative: 49 year-old male presents to ED today by POV/ambulating with a chief complaint of SI, feels he will drink himself to , recently seen for similar and set-up with community outpatient resources but does not feel safe with this and immediately had resumed drinking yesterday, but stopped himself at 8 beers with onset chronically- states years of alcohol abuse, years of attempts of suicide while drunk. Quality described as feels hopeless but knows he needs to stop, no radiation to shortness of breath, active intoxication, withdrawal seizures, endorses some epigastric pain and intractable vomiting the past day or so, that travels up his esohpagus with known hiatal hernia. Severity is described as severe. Palliating factors include nothing specific attempted. Provoking factors include nothing specific. Events leading up to the incident/Associated Symptoms: Patient is hoping to go in-patient. Patient not anticoagulated. Related Data Home Medications ?Medication ?Instructions ?Recorded ?Confirmed buspirone 15 mg tablet 20 mg PO TID 01/14/15 02/09/25 clonazepam 1 mg tablet 1 mg PO TID 01/14/15 02/09/25 gabapentin 600 mg tablet 600 mg PO TID 01/14/15 02/09/25 hydroxyzine pamoate 50 mg capsule 50 mg PO TID 01/14/15 02/09/25 omeprazole 20 mg capsule,delayed 20 mg PO DAILY 01/14/15 02/09/25 release paroxetine HCl 40 mg tablet 20 mg PO TID 01/14/15 02/09/25 lamotrigine 100 mg tablet 100 mg PO BID 02/09/25 02/09/25 (Lamictal) olanzapine 10 mg tablet 10 mg PO QHS 02/09/25 02/09/25 sertraline 100 mg tablet 100 mg PO QHS 02/09/25 02/09/25 Allergies Allergy/AdvReac Type Severity Reaction Status Date / Time quetiapine fumarate (From AdvReac Intermediate Nausea Unverified 02/09/25 14:37 Seroquel) General Stated Complaint: PsychEval LINDA: 2 Review of Systems All systems reviewed & are unremarkable except as noted in HPI and below Exam Narrative Exam Narrative: GENERAL APPEARANCE: Well-nourished, non-toxic, awake and alert, atraumatic, no acute distress. SKIN: Warm, pink, dry, intact, without rashes/lesions/ulcerations. HEAD: Normocephalic, atraumatic, normal hair distribution for gender/age. EYES: Normal conjunctiva, no exudates on lids/lashes. ENT: Nares patent, no circumoral cyanosis, no facial swelling NECK: Supple, trachea midline, painless cervical ROM. LUNGS/CHEST: Lungs CTA bilaterally- no rhonchi/rales/wheezes diffusely, non-labored respirations, normal A/P diameter, symmetrical expansion, no chest wall deformity HEART (CV/PV): Regular rate and rhythm without murmur, no peripheral edema, no JVD. ABDOMEN: Soft, non-distended, no guarding, epigastric tenderness without rebound tenderness, Gusman's negative. MSK: Normal ROM, no swelling/deformity to bilateral UEs or LEs, moving all extremities without weakness, no cyanosis, spine midline without tenderness, normal curvature. NEURO: Mental Status AAOx4 - alert to person, place, time, events No facial droop, no forehead involvement. Motor: No focal weakness - strength 5/5 in bilateral UEs and LEs, proximal and distal, symmetric. Sensory: sensation intact to light touch globally. Gait normal: patient ambulated without ataxia into ED room. PSYCH: dysthymic, cooperative, pleasant, appropriate speech, suicidal Course Vital Signs Vital signs: Vital Signs Temperature 36.8 C 02/12/25 15:12 Pulse 122 H 02/12/25 15:12 Respiratory Rate 24 02/12/25 15:12 Blood Pressure 141/94 H 02/12/25 15:12 Temperature 36.8 C 02/12/25 15:12 Temperature Source Oral 02/12/25 15:12 Pulse 122 H 02/12/25 15:12 Respiratory Rate 24 02/12/25 15:12 Blood Pressure 141/94 H 02/12/25 15:12 Pain Level 10 02/12/25 15:12 Medical Decision Making This dictation utilizes [id number] dictation software and may contain unedited grammatical errors. 49 year-old male presents to ED today by POV/ambulating with a chief complaint of SI, feels he will drink himself to , recently seen for similar and set-up with community outpatient resources but does not feel safe with this and immediately had resumed drinking yesterday, but stopped himself at 8 beers with onset chronically- states years of alcohol abuse, years of attempts of suicide while drunk. Quality described as feels hopeless but knows he needs to stop, no radiation to shortness of breath, active intoxication, withdrawal seizures, endorses some epigastric pain and intractable vomiting the past day or so, that travels up his esohpagus with known hiatal hernia. Severity is described as severe. Palliating factors include nothing specific attempted. Provoking factors include nothing specific. Events leading up to the incident/Associated Symptoms: Patient is hoping to go in-patient. Patients' medical history: Alcoholic gastritis, alcohol use disorder, suicidal ideations. Family and social history: Daily drinking, denies other drug use, states he cannot keep food down for his diet. Pertinent exam findings / vital signs include epigastric tenderness, otherwise benign abdomen, tachycardic on arrival, lungs CTA. Differential / pathologies of concern include alcohol withdrawal, suicidal ideation, depression. Diagnostic studies of: -CBC, CMP, lactate, ammonia, CK, troponin, lipase, TSH, UA, UDS, alcohol level, EKG, CT chest abdomen pelvis. - CBC shows no leukocytosis, mildly increased anemia nonspecific at 10.2, normal platelet count - CMP without acute abnormality save for mildly low calcium and mildly low magnesium, magnesium repleted by banana bag - Troponin negative - Ammonia negative - TSH within normal limits - Lipase negative - UA benign - UDS negative - Alcohol level negative - CT shows large hiatal hernia that is known already and no other acute findings -CK is elevated, will order re-check for tomorrow after fluids both IV and PO Interventions of: -[facility] eval, voluntary in-patient search. Cleared for Zone B and admitted to ED OBS. -1L Banana bag -1g PO Tylenol, no vomiting ED Course/Assessment/Plan: 49-year-old male with alcohol use disorder and significant history of suicidal ideations and attempts while intoxicated presents after being discharged and safety plan at home yesterday, states he does not feel safe at home and drank immediately upon discharge is afraid he will act out. His labs show a mild elevation of CK and he has been vomiting today but has no active vomiting here in the emergency department, he received some IV fluids p.o. Tylenol without vomiting, seen by [facility] and recommended for voluntary inpatient bed search, entered into ED opts, home meds ordered, every morning CK checks ordered, patient can receive p.o. magnesium supplements as needed. Disposition of Suicidal Ideations, Alcohol Use Disorder. Patient verbalized understanding of the plan and return to ED criteria and engaged in shared decision making. Medical Records Medical records reviewed: Yes I reviewed the patient's medical records. Imaging Data Radiologic Study: Attestation: I personally reviewed and interpreted this imaging study as follows: Imaging: CT Scan Radiologist's impression: EXAM: CT CHEST/ABD/PEL W CLINICAL HISTORY: hematemesis, epigastric pain. TECHNIQUE: Imaging Protocol: Axial computed tomography images with coronal and sagittal reformatted images were created and reviewed CONTRAST MATERIAL: Intravenous: Omnipaque 350 Contrast volume:75 mL Oral: None COMPARISON: No exams were available for comparison FINDINGS: CHEST: LUNGS: There is a small 3 millimeter nodule in the right upper lobe. No other lung nodules, infiltrates, nor pleural effusions. MEDIASTINUM: There is a large hiatal hernia which measures 11 cm wide by 7 cm AP by 6 cm craniocaudal. There is no singh are nor mediastinal adenopathy. Partially visualizedthyroid gland appears unremarkable. CARDIAC: Heart size is normal. There is no pericardial effusion.Caliber of the thoracic aorta is within normal limits. OSSEOUS: No significant osseous lesions.There is a healed fracture of the lateral aspect of the left 4th rib no acute rib fractures evident. No sternal fracture. No vertebral fractures nor listhesis nor facet malalignment. ABDOMEN: There is no ascites. LIVER: There are no focal hepatic lesions nor dilatation of intrahepatic ducts. Liver is mildly hypodense implying an element of steatosis. GALLBLADDER/BILIARY: The gallbladder surgically absent. CBD is not dilated. PANCREAS: No evidence of pancreatic mass nor dilatation of the pancreatic duct. SPLEEN: Spleen is not enlarged. There are no intrasplenic lesions. Splenic and portal veins are patent. ADRENALS: There are no significant adrenal masses. KIDNEYS: No calculi nor hydronephrosis. No solid renal masses. No cysts evident. ABDOMINAL AORTA: Abdominal aorta is not enlarged. LYMPH NODES: There is no retroperitoneal nor paraaortic adenopathy. ABDOMINAL WALL: No evidence of significant anterior abdominal wall nor inguinal hernia. GI: There is no evidence of bowel obstruction. PELVIS: LYMPH NODES: There is no intrapelvic nor inguinal adenopathy. GI: No evidence of appendicitis.No evidence of sigmoid diverticulitis. URINARY BLADDER: Collapsed and therefore difficult to evaluate. REPRODUCTIVE: Prostate size normal. Seminal vesicles unremarkable. OSSEOUS: No significant osseous lesions. IMPRESSION: 1. There is a large hiatal hernia measuring 11 x 7 x 6 cm. No esophageal varices evident. 2. There is a healed fracture of the left 4th rib. 3. No significant acute findings in the abdomen and pelvis. Report called by myself to ER provider 02/12/2025 at 6:10 p.m. Lab Data Lab results reviewed: Yes I reviewed the patient's lab results. Labs: Laboratory Tests Range/Units 02/12/25 02/12/25 02/12/25 16:16 17:05 17:23 WBC (4.4-10.8) 10^3/uL 8.52 RBC (4.36-5.78) 10^6/uL 4.69 Hgb (13.5-17.5) g/dL 10.2 L Hct (40.0-50.0) % 33.5 L MCV (80-95) fL 71 L MCH (27.0-33.0) pg 21.7 L MCHC (32.0-36.0) % 30.4 L RDW (11.8-14.1) % 15.7 H Plt Count (130-400) 10^3/uL 221 MPV (8.0-11.0) fL 10.3 Immature Gran % % 0.2 Neutrophils % % 71.6 Lymphocytes % % 19.2 Monocytes % % 7.6 Eosinophils % % 0.8 Basophils % % 0.6 Nucleated RBC % (0.0-0.3) % 0.0 Absolute Neutrophils (1.2-6.7) 10^3/uL 6.09 Absolute Lymphocytes (1.2-3.4) 10^3/uL 1.64 Absolute Monocytes (0.1-0.8) 10^3/uL 0.65 Absolute Eosinophils (0.0-0.7) 10^3/uL 0.07 Absolute Basophils (0.0-0.2) 10^3/uL 0.05 RBC Morphology See Below Hypochromasia 1+ Anisocytosis 1+ Microcytosis 2+ VBG Lactate (<or=2.0) mmol/L 0.9 Sodium (136-145) mmol/L 142 Potassium (3.5-5.1) mmol/L 3.5 Chloride (98-107) mmol/L 104 Carbon Dioxide (21.0-32.0) mmol/L 27.1 Anion Gap (3-11) mmol/L 10.9 BUN (7-18) mg/dL 13 Creatinine (0.70-1.30) mg/dL 0.8 Est GFR (CKD-EPI 2020) (mL/min/1.73m2) 109.85 Glucose (74-106) mg/dL 85 Calcium (8.5-10.1) mg/dL 8.0 L Magnesium (1.8-2.4) mg/dL 1.6 L Total Bilirubin (0.2-1.0) mg/dL 0.5 Conjugated Bilirubin (0.0-0.2) mg/dL 0.1 AST (15-37) U/L 37 ALT (16-63) U/L 43 Alkaline Phosphatase (46-116) U/L 117 H Ammonia (11-32) umol/L < 10 L Creatine Kinase (39-308) U/L 757 H Troponin I (<or=76) ng/L 8 Total Protein (6.4-8.2) g/dL 7.1 Albumin (3.4-5.0) g/dL 3.6 Lipase (<78) U/L 30 TSH (0.36-3.74) uIU/mL 0.56 Urine Color (Yellow) Yellow Urine Clarity (Clear) Clear Urine pH (5-8) 6.5 Ur Specific [place] (1.005-1.025) 1.020 Urine Protein (Neg-Trace) mg/dL Negative Urine Ketones (Negative) mg/dL 80 H Urine Blood (Negative) Negative Urine Nitrite (Negative) Negative Urine Bilirubin (Negative) Small H Urine Urobilinogen (Up to 0.2) mg/dL 0.2 Ur Leukocyte Esterase (Negative) Negative Urine Glucose (Negative) mg/dL Negative Urine Opiates Screen (Negative) Negative Urine Methadone Screen (Negative) Negative Ur Barbiturates Screen (Negative) Negative Ur Tricyclics Screen (Negative) Negative Ur Amphetamines Screen (Negative) Negative U Benzodiazepines Scrn (Negative) Negative Urine Cocaine Screen (Negative) Negative Ur THC Screen (Negative) Negative Ethyl Alcohol (<10) mg/dL < 3.0 PFSH All Active Problems (Updated 02/12/25 @ 22:44 by ENRIQUE Woodard) Sleep apnea (Acute) Alcoholic gastritis (Acute) Alcohol use disorder (Acute) Suicidal ideations (Acute) Social History Smoking/Tobacco Use Status: Former Tobacco Use Smoking risk assessment performed?: Yes Alcohol Intake: current Alcohol Intake frequency: a few times a week Drug use: Never Substance use type: does not use Housing: other Do you feel safe at home: No Do you feel safe in your relationship?: No
[2025-02-12 16:23] LABS: Abs Immature Grans 0.02 10^3/uL (0.0-0.06); HCT 33.5 % (40.0-50.0); HGB 10.2 g/dL (13.5-17.5); Immature Grans % 0.2 %; MCH 21.7 pg (27.0-33.0); MCHC 30.4 % (32.0-36.0); MCV 71 fL (80-95); MPV 10.3 fL (8.0-11.0); Platelet Count 221 10^3/uL (130-400); RBC 4.69 10^6/uL (4.36-5.78); RDW 15.7 % (11.8-14.1); RDW-SD 39.3 fL; WBC 8.52 10^3/uL (4.4-10.8)
[2025-02-12 16:35] LABS: Anisocytosis 1+; Hypochromasia 1+; Microcytosis 2+
[2025-02-12 16:51] LABS: ALT 43 U/L (16-63); AST 37 U/L (15-37); Albumin 3.6 g/dL (3.4-5.0); Alkaline Phosphatase 117 U/L (46-116); Anion Gap 10.9 mmol/L (3-11); BUN 13 mg/dL (7-18); Bilirubin, Direct 0.1 mg/dL (0.0-0.2); Bilirubin, Total 0.5 mg/dL (0.2-1.0); CO2 27.1 mmol/L (21.0-32.0); Calcium 8.0 mg/dL (8.5-10.1); Chloride 104 mmol/L (98-107); Creatine Kinase 757 U/L (39-308); Estimated GFR 109.85 (mL/min/1.73m2); Glucose 85 mg/dL (74-106); Lipase 30 U/L (<78); Magnesium 1.6 mg/dL (1.8-2.4); Potassium 3.5 mmol/L (3.5-5.1); Sodium 142 mmol/L (136-145); TSH (W/Ref FT4) 0.56 uIU/mL (0.36-3.74); Total Protein 7.1 g/dL (6.4-8.2); Troponin I 8 ng/L (<or=76)
[2025-02-12] MEDS: MAGNESIUM SULFATE 8.12 MEQ, MULTIVITAMIN 10 ML, THIAMINE 100 MG, FOLIC ACID 1 MG in Nor... 168.867 MG IV (16:51)
[2025-02-12] MEDS: Pantoprazole 40 MG VIAL IVP (16:53)
[2025-02-12] MEDS: Normal Saline - Diluent 50 ML VIAL IJ (17:26)
[2025-02-12] MEDS: Omnipaque 350 MG/ML 100 ML BTL IJ (17:27)
[2025-02-12 17:32] LABS: Ammonia < 10 umol/L (11-32)
[2025-02-12 17:38] LABS: Glucose Negative (Negative)
[2025-02-12 17:51] LABS: Cannabinoids THC Negative (Negative); METHADONE URINE SCREEN Negative (Negative)
[2025-02-12] MEDS: Acetaminophen 500 MG TAB 1000 MG PO (19:04)
[2025-02-13 06:06] LABS: Creatine Kinase 525 U/L (39-308)
--- NOTE | 2025-02-13 07:03 | ED.PROG1_ITS ---
Date of service: 02/13/25 Time of Service: 07:00 Psychiatric Border Handoff Update Brief Story: This is a 49-year-old male patient with a history of alcohol use disorder, alcoholic gastritis, sleep apnea, who is boarding in our emergency department voluntarily with suicidal thoughts and feelings in the setting of a recent alcohol use disorder relapse. The patient had been vomiting, and required IV fluids and medications for management of his symptoms. Prior to my taking over their care, the patient was medically cleared, and has been resting comfortably. They have met with the social media community manager and we are awaiting final dispo. They have not required any additional medications for restraint or sedation. They have been admitted to ED psych observation. I did provide the patient with a GI cocktail and Pepcid for ongoing throat pain in the setting of his recent vomiting. This offered excellent relief. The patient was able to tolerate his meals without difficulty. The patient was signed out to the oncoming provider prior to final disposition. Remained hemodynamically appropriate, calm, cooperative, and comfortable while under my care. Jennifer Stauffer MD Status: voluntary Able to leave: would need physician/ELICIA and crisis evaluation prior to leaving Behavioral Concerns: None Potential Disposition: Inpatient psych Barriers to Disposition: Awaiting acceptance Medical Concerns: Sleep apnea, will likely require CPAP in the main ED when asleep Mediation Reconciliation performed: Yes Code Status ordered: Yes Diet ordered: Yes Discharge Plan Disposition Condition: Stable Discharge Details Chief Complaint: PsychEval Clinical Impression: Alcohol use disorder, Suicidal ideations Primary Care Provider: Eriberto Peter ED Provider: Jennifer Stauffer Home Meds and New Rx's Prescriptions: No Action gabapentin 600 MG tablet 600 mg PO TID Patient Comments: states he is not taking currently clonazepam 1 MG tablet 1 mg PO TID Patient Comments: states he is not taking currently hydroxyzine pamoate 50 MG capsule 50 mg PO TID omeprazole 20 MG capsule,delayed release(DR/EC) 20 mg PO DAILY Patient Comments: states he is not taking currently paroxetine HCl 40 MG tablet 20 mg PO TID Patient Comments: states he is not taking currently buspirone 15 MG tablet 20 mg PO TID Patient Comments: states he is not taking currently lamotrigine [Lamictal] 100 mg tablet 100 mg PO BID sertraline 100 mg tablet 100 mg PO QHS olanzapine 10 mg tablet 10 mg PO QHS
[2025-02-13 07:35] VITALS: BP 147/98; PULSE 85; RESP 18; TEMP 35.6; O2SAT 97
[2025-02-13] MEDS: busPIRone 15 MG TAB 20 MG PO ×3 (08:37→19:57)
[2025-02-13] MEDS: clonazePAM 1 MG TAB PO ×3 (08:37→19:57)
[2025-02-13] MEDS: Gabapentin 600 MG TAB PO (08:38)
[2025-02-13] MEDS: Omeprazole 20 MG CAPCR PO (08:40)
[2025-02-13] MEDS: lamoTRIgine 100 MG TAB PO ×2 (08:40→19:57)
[2025-02-13] MEDS: Mylanta Suspension 30 ML CUP PO (08:55)
[2025-02-13] MEDS: hydrOXYzine PAMOATE 25 MG CAP 50 MG PO ×3 (09:40→19:56)
--- NOTE | 2025-02-13 12:17 | MHPN_ITS ---
Date of service: 02/13/25 Time of Service: 12:19 Mental Health Emergency Note Release [facility] release signed:: Yes Reason for Visit The client is known to [facility] and was recently at [facility] seeking voluntary placement and safety planned home on 02/11. He returned on 02.12 stating it was a mistake for him to have left as he was afraid of what he would do. He has been hospitalized at [facility] and in the past as well as treatments at [facility] and another place in [facility]. In the last 2 weeks has the pt presented for ES prior to today?: Yes, presented at [facility] ED Impression The client is a 49-year-old, single, male who lives in a sober living home known as [facility] and would like to return there once he is able to get sober again and not have the urge to drink. The client uses He/Him pronouns. All underrepresented categories were honored during this assessment. The client presents dressed in hospital mandated clothing. He was chatting with another client also waiting placement. The client walked to his room when asked to complete his daily assessment. He sits on the bed and is engaged and has a nervous presentation as evidenced by the rate of his speech, accounts of what he has been experiencing and facial expressions i.e. large eyes and flat affect. He is describing severe4 pain in his throat that feels like he has a ball there and notes that this pain wakes him from sleep. He shows good insight and judgement and is fully oriented. Plan/Disposition Recommended Disposition: Hospitalization facilities contacted. Plan: The client will remain at [facility] pending acceptance to a hospital. Person reported agreement to plan: Yes Reports/communication Outcome discussed with: ED/Personnel
[2025-02-13] MEDS: MYLANTA 30 ML, LIDOCAINE 2% VISCOUS UD 15 ML PO (14:17)
[2025-02-13] MEDS: Gabapentin 300 MG CAP 600 MG PO ×2 (14:44→19:57)
[2025-02-13] MEDS: Famotidine 20 MG TAB PO (14:45)
--- NOTE | 2025-02-13 14:57 | CMSP_ITS ---
Date of service: 02/13/25 Time of Service: 14:57 Care Management Safety Plan Status Status: Voluntary Reason for Wait Reason for Wait: Inpatient Admission Safety Plan Safety Plan: VOLUNTARY FOR INPATIENT PSYCHIATRIC STABILIZATION.? Patient is appropriate in all interactions since arriving at [facility]; Pt has demonstrated appropriate coping and communication skills, has articulated his or her needs and concerns and is fully engaged during staff interactions. Safety plan has been established with patient, and care team, to adhere to patient goals, identify restrictions based on behavioral status, address nutrition, and determine allowed personal belongings, tools for hygiene and personal care. Determine level of activity including ambulation, level of supervision, visitors, and determine privileges based on behaviors and level of engagement by pt. VOLUNTARY SAFETY PLAN: 1. Will remain on suicide precautions, in paper clothes 2. Will remain in Zone B under direct supervision of one-on-one staff at all times provided by [employer]; ANUPAM, RETAIL PLANNER assessment director. 3. May have paper cups, plates, finger foods as well as a cardboard spoon with which to eat meals. 4. Follow [facility] Management of the Admitted Behavioral Health Patient policy. 5. Shower available in Zone B without restriction. 6. Personal belongings-soft items permitted at RN discretion. 7. Visitors- supportive visitors, at RN discretion. 8. Activities: soft cart items, hospital tablets (Netflix/[place]+/music) approved per RN discretion. 9.? Bathroom available in Zone B without restriction. 10. Phone: limited to [facility] cordless phone at RN discretion. Due to VOLUNTARY status, if patient wishes to leave [facility], staff will contact [facility] Crisis Screener ([phone]) and Parts Lister ([phone]) as soon as possible. In the event of elopement, notify [facility] Police ([phone]). Patient is currently voluntarily at [facility] and seeking inpatient admission when a bed becomes available. [facility] Frontline Jacket Preparer will continue seeking placement. Please contact the Parts Lister ([phone]) and [facility] Jacket Preparer ([phone]) for any needed changes in the Safety Plan. Safety plan has been provided to interdepartmental care team.
--- NOTE | 2025-02-13 14:57 | PDOC.CMSAFE ---
Date of service: 02/13/25 Time of Service: 14:57 Care Management Safety Plan Status Status: Voluntary Reason for Wait Reason for Wait: Inpatient Admission Safety Plan Safety Plan: VOLUNTARY FOR INPATIENT PSYCHIATRIC STABILIZATION.? Patient is appropriate in all interactions since arriving at [facility]; Pt has demonstrated appropriate coping and communication skills, has articulated his or her needs and concerns and is fully engaged during staff interactions. Safety plan has been established with patient, and care team, to adhere to patient goals, identify restrictions based on behavioral status, address nutrition, and determine allowed personal belongings, tools for hygiene and personal care. Determine level of activity including ambulation, level of supervision, visitors, and determine privileges based on behaviors and level of engagement by pt. VOLUNTARY SAFETY PLAN: 1. Will remain on suicide precautions, in paper clothes 2. Will remain in Zone B under direct supervision of one-on-one staff at all times provided by [employer]; ANUPAM, BILLING TYPIST informatics physician liaison. 3. May have paper cups, plates, finger foods as well as a cardboard spoon with which to eat meals. 4. Follow [facility] Management of the Admitted Behavioral Health Patient policy. 5. Shower available in Zone B without restriction. 6. Personal belongings-soft items permitted at RN discretion. 7. Visitors- supportive visitors, at RN discretion. 8. Activities: soft cart items, hospital tablets (Netflix/[place]+/music) approved per RN discretion. 9.? Bathroom available in Zone B without restriction. 10. Phone: limited to [facility] cordless phone at RN discretion. Due to VOLUNTARY status, if patient wishes to leave [facility], staff will contact [facility] Crisis Screener ([phone]) and Career Portals Teacher ([phone]) as soon as possible. In the event of elopement, notify [facility] Police ([phone]). Patient is currently voluntarily at [facility] and seeking inpatient admission when a bed becomes available. [facility] Frontline Mangle Feeder will continue seeking placement. Please contact the Career Portals Teacher ([phone]) and [facility] Mangle Feeder ([phone]) for any needed changes in the Safety Plan. Safety plan has been provided to interdepartmental care team.
--- NOTE | 2025-02-13 15:00 | CMPROGNOTE_ITS ---
Date of service: 02/13/25 Time of Service: 15:00 Care Management Progress Note Progress Note Text Progress Note Text: CM huddled with [facility] and [facility] staff regarding Carl's plan of care. Per RN, he appears anxious today. He reported having a low appetite and worrying about keeping his food down, but per RN, he ate well for breakfast. Per RN, Carl has sleep apnea, and will need to go to the main ED when he sleeps in order to utilize a CPAP machine; RN die casting supervisor will relay this to evening staff. Per [facility], Carl is stating that he is not feeling SI or HI today, but that he will feel SI if he leaves, as he is worried about his drinking. He has expressed concern about his throat; per MD, he has alcoholic gastritis, but MD will recheck. RN requested that CM locate contact information for [facility] (sober living in [facility]); CM provided the phone number and offered to reach out to the scrum coach. Carl will contact [place], where he has been living, to inform them that he is hospitalized; he is hoping that they will save his room for him. Carl is currently voluntary, seeking inpatient psychiatric treatment. Referrals were sent to all facilities by [facility]. Safety plan in place; CM will continue to follow. Social Determinants of Health Screening Will the Patient Participate in the Screening?: Unable to obtain
[2025-02-13] MEDS: Sertraline 100 MG TAB PO (19:57)
[2025-02-13] MEDS: OLANZapine 10 MG TAB PO (19:57)
[2025-02-13 20:15] VITALS: BP 165/92; PULSE 98; RESP 16; TEMP 36.3; O2SAT 97
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
[2025-02-14] MEDS: Mylanta Suspension 30 ML CUP PO ×2 (00:45→09:37)
[2025-02-14 06:59] VITALS: BP 145/99; PULSE 93; TEMP 36.1; O2SAT 94
[2025-02-14] MEDS: lamoTRIgine 100 MG TAB PO (07:40)
[2025-02-14] MEDS: Omeprazole 20 MG CAPCR PO (07:40)
[2025-02-14] MEDS: Gabapentin 300 MG CAP 600 MG PO (07:40)
[2025-02-14] MEDS: clonazePAM 1 MG TAB PO (07:41)
[2025-02-14] MEDS: busPIRone 15 MG TAB 20 MG PO (07:41)
[2025-02-14] MEDS: hydrOXYzine PAMOATE 25 MG CAP 50 MG PO (07:41)
--- NOTE | 2025-02-14 11:44 | ED.PSYCHBOAR ---
Date of service: 02/14/25 Time of Service: 11:44 Psychiatric Border Handoff Update Brief Story: Care was signed out by Dr. Langford, please see his documentation in prior documentation regarding course. Patient is here voluntarily for suicidal ideation. Status: voluntary Able to leave: would need physician/ELICIA and crisis evaluation prior to leaving Behavioral Concerns: no Potential Disposition: After signout, patient had been accepted at [facility] for transfer. Medical Concerns: none. No signs of alcohol withdrawal. Mediation Reconciliation performed: Yes Code Status ordered: Yes Diet ordered: Yes Future to do Items: Complete transfer paperwork Discharge Plan Disposition Patient Disposition: Psychiatric Hospital/Unit Specific [facility] Discharge Details Clinical Impression: Alcohol use disorder, Suicidal ideations Primary Care Provider: Eriberto Peter ED Provider: [facility] Meds and New Rx's Prescriptions: No Action hydroxyzine pamoate 50 MG capsule 100 mg PO PRN lamotrigine [Lamictal] 100 mg tablet 100 mg PO BID sertraline 100 mg tablet 100 mg PO QHS olanzapine 10 mg tablet 10 mg PO QHS
--- NOTE | 2025-02-14 12:31 | CMSP_ITS ---
Date of service: 02/14/25 Time of Service: 12:31 Care Management Safety Plan Status Status: Voluntary Reason for Wait Reason for Wait: Inpatient Admission Safety Plan Safety Plan: VOLUNTARY FOR INPATIENT PSYCHIATRIC STABILIZATION.? Patient is appropriate in all interactions since arriving at [facility]; Pt has demonstrated appropriate coping and communication skills, has articulated his or her needs and concerns and is fully engaged during staff interactions. Safety plan has been established with patient, and care team, to adhere to patient goals, identify restrictions based on behavioral status, address nutrition, and determine allowed personal belongings, tools for hygiene and personal care. Determine level of activity including ambulation, level of supervision, visitors, and determine privileges based on behaviors and level of engagement by pt. VOLUNTARY SAFETY PLAN: 1. Will remain on suicide precautions, in paper clothes 2. Will remain in Zone B under direct supervision of one-on-one staff at all times provided by [employer]; ANUPAM, DELIVERER MERCHANDISE cement storage worker. 3. May have paper cups, plates, finger foods as well as a cardboard spoon with which to eat meals. 4. Follow [facility] Management of the Admitted Behavioral Health Patient policy. 5. Shower available in Zone B without restriction. 6. Personal belongings-soft items permitted at RN discretion. 7. Visitors- supportive visitors, at RN discretion. 8. Activities: soft cart items, hospital tablets (Netflix/[place]+/music) approved per RN discretion. 9.? Bathroom available in Zone B without restriction. 10. Phone: limited to [facility] cordless phone at RN discretion. Due to VOLUNTARY status, if patient wishes to leave [facility], staff will contact [facility] Crisis Screener ([phone]) and [place]ing Guide ([phone]) as soon as possible. In the event of elopement, notify [facility] Police ([phone]). Patient is currently voluntarily at [facility] and seeking inpatient admission when a bed becomes available. [facility] Frontline Digital Production Manager will continue seeking placement. Please contact the [place]ing Guide ([phone]) and [facility] Digital Production Manager ([phone]) for any needed changes in the Safety Plan. Safety plan has been provided to interdepartmental care team.
--- NOTE | 2025-02-14 12:31 | PDOC.CMSAFE ---
Date of service: 02/14/25 Time of Service: 12:31 Care Management Safety Plan Status Status: Voluntary Reason for Wait Reason for Wait: Inpatient Admission Safety Plan Safety Plan: VOLUNTARY FOR INPATIENT PSYCHIATRIC STABILIZATION.? Patient is appropriate in all interactions since arriving at [facility]; Pt has demonstrated appropriate coping and communication skills, has articulated his or her needs and concerns and is fully engaged during staff interactions. Safety plan has been established with patient, and care team, to adhere to patient goals, identify restrictions based on behavioral status, address nutrition, and determine allowed personal belongings, tools for hygiene and personal care. Determine level of activity including ambulation, level of supervision, visitors, and determine privileges based on behaviors and level of engagement by pt. VOLUNTARY SAFETY PLAN: 1. Will remain on suicide precautions, in paper clothes 2. Will remain in Zone B under direct supervision of one-on-one staff at all times provided by [employer]; ANUPAM, CHILD AND FAMILY SERVICES SPECIALIST chinchilla machine operator. 3. May have paper cups, plates, finger foods as well as a cardboard spoon with which to eat meals. 4. Follow [facility] Management of the Admitted Behavioral Health Patient policy. 5. Shower available in Zone B without restriction. 6. Personal belongings-soft items permitted at RN discretion. 7. Visitors- supportive visitors, at RN discretion. 8. Activities: soft cart items, hospital tablets ([employer]flix/[place]+/music) approved per RN discretion. 9.? Bathroom available in Zone B without restriction. 10. Phone: limited to [facility] cordless phone at RN discretion. Due to VOLUNTARY status, if patient wishes to leave [facility], staff will contact [facility] Crisis Screener ([phone]) and Senior Systems Architect ([phone]) as soon as possible. In the event of elopement, notify [facility] Police ([phone]). Patient is currently voluntarily at [facility] and seeking inpatient admission when a bed becomes available. [facility] Frontline Automated Weaver will continue seeking placement. Please contact the Senior Systems Architect ([phone]) and [facility] Automated Weaver ([phone]) for any needed changes in the Safety Plan. Safety plan has been provided to interdepartmental care team.
--- NOTE | 2025-02-14 12:32 | PDOC.CMPRO ---
Date of service: 02/14/25 Time of Service: 12:32 Care Management Progress Note Progress Note Text Progress Note Text: JOSE huddled with [facility] and [facility] staff regarding Carl's plan of care. Per [facility], Carl has been accepted at [facility] for treatment today. [facility] is also considering him for admission today. Per RN, Carl had contact with his glaciologist this morning, and ED staff were attempting to support him with a tele meeting for his court date, which is this afternoon. CM emailed Carl's glaciologist, at his request, to provide documentation stating that he is currently hospitalized, which impacts his ability to attend court in person. Carl accepted the bed offer at [facility], and was transported there for treatment this afternoon. CM will continue to follow. Social Determinants of Health Screening Will the Patient Participate in the Screening?: Unable to obtain
== END 2025-02-14 14:33 ==
PROVIDERS: Physician Assistant; Emergency Provider Student in an Organized Health Care Education/Training Program; PCP Family Medicine
DX: K29.20 Alcoholic gastritis without bleeding (principal); R45.851 Suicidal ideations; F10.90 Alcohol use, unspecified, uncomplicated
CPT/HCPCS: 00123; 36415; 74177; 80048; 80076; 80307; 82550; 83690; 93005; 96127; 96365; 96366; 96375; 99285; H0046; 71260; 80320; 81003; 82140; 83605; 83735; 84443; 84484; 85025; 93010; J2470; J3411; J3475; J3490